=== PATIENT | male | born 1990 | race Caucasian/White ===

== ENCOUNTER 2023-04-17 15:35 | Outpatient (OUT) | payer OTHER, SELFPAY ==
--- NOTE | 2023-04-17 15:40 | XR_ITS ---
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 FINDINGS: ORBITS: Negative for a metallic foreign body. OTHER: Negative. IMPRESSION: 1. No metallic foreign body within the orbits. Electronically authenticated by: KEITH YORK Date: 04/17/2023 15:55
--- NOTE | 2023-04-17 16:00 | MR_ITS ---
[address] [address] Patient Name: MEMO MIRELES MRN: [id number] date: 1990 Sex: M Assigned Patient Location: MRI Current Patient Location: Accession/Order Number: [id number] Exam Date: 04/17/2023 16:00 Report Date: 04/18/2023 06:33 At the request of: NON-STAFF PHYSICIAN Procedure: MR lumbar spine wo con EXAM: MRI of the lumbar spine without IV gadolinium contrast. REASON FOR EXAM: Low back pain with radiculopathy to feet COMPARISON: None FINDINGS: No lumbar spine fractures, acute malalignment or acute abnormal marrow signal. No spinal canal mass, hematoma or fluid collection. Mild lumbar spine degenerative changes with preserved intervertebral disc heights. No substantial posterior disc protrusions. No substantial spinal canal stenoses. Mild bilateral L5-S1 neural foraminal stenoses. Mild left L3-L4 and L4-5 neural foraminal stenoses. Remainder unremarkable. IMPRESSION: 1. No acute lumbar spine abnormalities. 2. No moderate or high-grade spinal canal or neural foraminal stenoses. Electronically authenticated by: ROSE FAITH Date: 04/18/2023 06:33
== END 2023-04-17 15:36 | disposition home or self-care (01) ==
LOC: MRI 15:35
DX: M54.16 Radiculopathy, lumbar region (principal)
CPT/HCPCS: 70030; 72148

== ENCOUNTER 2024-02-03 14:00 | Outpatient (OUT) | payer OTHER, SELFPAY | END 2024-02-03 14:01 | disposition home or self-care (01) | LOC: PST 14:49 | PROVIDERS: Visit Provider Surgery | DX: Z01.818 Encounter for other preprocedural examination (principal); K62.89 Other specified diseases of anus and rectum; K62.5 Hemorrhage of anus and rectum; R19.5 Other fecal abnormalities; R19.4 Change in bowel habit ==

== ENCOUNTER 2024-02-11 09:54 | Day surgery (SDC) | payer OTHER, SELFPAY ==
--- NOTE | 2024-02-11 | OP_ITS ---
OPERATION DATE: 02/11/2024 PREOPERATIVE DIAGNOSIS: Change in bowel habits, abdominal pain, rectal bleeding. POSTOPERATIVE DIAGNOSIS: Prominent rectal veins. PROCEDURE: Colonoscopy to cecum with random sigmoid biopsies. SURGEON: Raffaele Byrne M.D. ANESTHESIA: Monitored anesthesia care. ESTIMATED BLOOD LOSS: Zero. INDICATIONS AND CONSENT: Patient is a 34-year-old male with a history of intermittent rectal bleeding, crampy abdominal pain, as well as alternating diarrhea and constipation. Indications, risks, benefits, alternatives of proceeding with colonoscopy were explained extensively to the patient, including the risks of bleeding, colon perforation or anesthetic complications. All of his questions were answered. Informed consent was obtained. PROCEDURE: Patient brought to the operating room, placed in the left lateral decubitus position. Monitored anesthesia care was provided. Rectal exam was performed which showed no masses or blood. The scope was inserted into the anal canal. Under direct visualization was advanced. It was advanced to the cecum where cecal markings were clearly identified. There was noted to be a good prep. Upon withdrawal of the scope, mucosal surfaces were carefully examined. There were no mass lesions or polyps. No inflammatory changes or ulcerations. No significant diverticulosis. There was noted to be some redundancy of the colon. Multiple sigmoid biopsies were obtained with cold biopsy forceps with good hemostasis. The scope was retroflexed in the anal canal. There were noted to be some prominent rectal veins, no significant hemorrhoidal disease. Scope was then withdrawn. Patient tolerated procedure well, was sent to recovery room in good condition. f/u screening colonoscopy should be in 10 years. CC: JOHN Hooper
[2024-02-11 10:17] VITALS: BP 131/76; PULSE 65; TEMP 35.9; O2SAT 100; BMI 26.6
[2024-02-11] MEDS: LACTATED RINGER'S SOLUTION 1,000 ML 50 ML IV (10:37)
[2024-02-11 13:17] VITALS: BP 82/38; PULSE 98; TEMP 36.2; O2SAT 96
[2024-02-11 13:32] VITALS: BP 100/58; PULSE 54; O2SAT 99
[2024-02-11 13:47] VITALS: BP 106/62; PULSE 56; O2SAT 97
== END 2024-02-11 13:50 | disposition home or self-care (01) ==
PROVIDERS: Visit Provider Surgery
PROC: (CPT 00812; principal; 2024-02-11 10:45)
DX: K62.89 Other specified diseases of anus and rectum (principal); K62.5 Hemorrhage of anus and rectum; R19.4 Change in bowel habit; G47.33 Obstructive sleep apnea (adult) (pediatric); N52.9 Male erectile dysfunction, unspecified; F17.290 Nicotine dependence, other tobacco product, uncomplicated; R10.31 Right lower quadrant pain; R10.32 Left lower quadrant pain; F43.12 Post-traumatic stress disorder, chronic
CPT/HCPCS: 00812; 45380; 88305; J2704

== ENCOUNTER 2024-04-05 21:51 | Emergency (ER) | payer OTHER, SELFPAY ==
--- OUTSIDE RECORDS SUMMARY | 2024-04-05 22:09 | XMS_ITS | CCD ---
Author Organization [facility] Care Team Providers Care Telephone Exchange Operator Name Role Phone Elba León Unavailable DEX SIMMONS Admitting Unavailable DEX SIMMONS Attending Unavailable DEX SIMMONS Primary Care Unavailable DR KEITH YORK Consulting Unavailable DEX SIMMONS Consulting Unavailable NONE, XXXX Primary Care Physician Unavailab Raffaele Marcos Attending Unavailable Raffaele Byrne Admitting Unavailable MD Raffaele Byrne Attending Provider Raffaele BYRNE Attending Unavailable Raffaele BYRNE Attending Unavailable Raffaele BYRNE Attending Unavailable Medications Current Medications Medication Drug Class(es) Dates Sig (Normalized) Sig (Original) Betamethasone / Clotrimazole (1 source) Azole Antifungal, Corticosteroid Start: 4 betamethasone-clotrim azole topical 1 avril, Topical, BID, Refill(s) 0 Start Date: 01/07/24 Status: Ordered celecoxib 200 mg oral capsule (2 sources) Nonsteroidal Anti-inflammatory Drug Start: 4 take 1 capsule by mouth once daily CeleBREX 200 mg Cap 200 mg = 1 cap(s), Oral, Daily, Refills(s) 0 Start Date: 01/07/24 Status: Ordered dextromethorphan hydrobromide 15 mg / guaiFENesin 400 mg / pseudoephedrine hydrochloride 60 mg oral tablet (1 source) alpha-Adrenergic Agonist, Uncompetitive O-qrwmhu-R-asparta te Receptor Antagonist, Sigma-1 Agonist Start: 3 take 4 tablets by mouth every twenty-four hours as needed Capmist DM 60-15-400 MG as needed Orally every 4-6 hours as needed, max 4 tablets in 24 hours for 5 days Sep, Active Dibucaine (1 source) Standardized Chemical Allergen Start: 4 Dibucaine 1% topical ointment 1 avril, Topical, TID, Refill(s) 0 Start Date: 01/07/24 Status: Ordered hydrocortisone acetate 10 mg/ml / pramoxine hydrochloride 10 mg/ml rectal foam (1 source) Corticosteroid Start: 4 hydrocortisone-pramox ine rectal foam 1 avril, Rectal, BID, Refill(s) 0 Start Date: 01/07/24 Status: Ordered methylPREDNISolone 4 mg oral tablet (1 source) Corticosteroid Start: 3 methylPREDNISolone 4 MG as directed Orally for 6 days Sep, Active sertraline 100 mg oral tablet (3 sources) Serotonin Reuptake Inhibitor Start: 4 take 1 tablet by mouth once daily Zoloft 100 mg Tab 100 mg = 1 tab(s), Oral, Daily, Refills(s) 0 Start Date: 01/07/24 Status: Ordered Sertraline HCl A ctive Problems Active Problems Problem Classification Problem Date Documented Da te Episodic/Chronic Abdominal pain (4 sources) Right lower quadrant pain; Translations: [Right lower quadrant pain] Onset: 01-29-2024 Episodic Anal and rectal conditions (3 sources) Anorectal disorder; Translations: [Other specified diseases of anus and rectum] Onset: 01-29-2024 Episodic Anxiety disorders (2 sources) Chronic post-traumatic stress disorder 01-07-2024 Chronic Gastrointestinal hemorrhage (4 sources) Hemorrhage of rectum and anus; Translations: [Hemorrhage of anus and rectum] Onset: 01-29-2024 Episodic Headache; including migraine (2 sources) Chronic tension-type headache 01-07-2024 Chronic Mood disorders (2 sources) Chronic recurrent major depressive disorder 01-07-2024 Chronic Other gastrointestinal disorders (4 sources) Altered bowel function; Translations: [Change in bowel habit] Onset: 01-29-2024 Episodic Other male genital disorders (2 sources) Impotence 01-07-2024 Chronic Other nervous system disorders (1 source) Chronic pain; Translations: [Other chronic pain] Onset: 01-29-2024 Chronic Other nutritional; endocrine; and metabolic disorders (2 sources) Overweight 01-29-2024 Episodic Other nutritional; endocrine; and metabolic disorders (2 sources) Overweight in adulthood with body mass index of 25 or more but less than 30 01-29-2024 Episodic Other screening for suspected conditions (not mental disorders or infectious disease) (2 sources) No current problems or disability 03-28-2014 Episodic Other upper respiratory disease (2 sources) Chronic rhinitis 01-07-2024 Chronic Other upper respiratory infections (1 source) Acute upper respiratory infection, unspecified Episodic Residual codes; unclassified (2 sources) Obstructive sleep apnea syndrome 01-07-2024 Chronic Residual codes; unclassified (1 source) Tobacco user; Translations: [Tobacco use] Onset: 01-29-2024 Episodic Residual codes; unclassified (2 sources) Nicotine-filled electronic cigarette user 01-29-2024 Episodic Substance-related disorders (2 sources) Nicotine dependence 01-07-2024 Chronic Past or Other Problems Problem Classification Problem Date Documented Da te Episodic/Chronic Immunizations and screening for infectious disease (1 source) Contact with and (suspected) exposure to other viral communicable diseases Onset: 05-21-2022 Resolved: 05-21-2022 Episodic Unclassified (1 source) Contact with and (suspected) exposure to covid-19 Z20.822 Viral infection (1 source) COVID-19 Onset: 05-21-2022 Resolved: 05-21-2022 Results Test Name Value Interpretation Reference Range Facility Ambulatory Visit Summaryon 0 02-24-2024 Ambulatory Visit Summary MEMO TRINH :1990 Visit Date:02/24/2024 Ambulatory Visit Instructions Your Care Team Attending Physician - JAYY SANTOS, Raffaele Ahumada Primary Care Physician - NONE, XXXX This Is Your Medications List celecoxib (CeleBREX 200 mg Cap) sertraline (Zoloft 100 mg Tab) Procedures Performed Colonoscopy (02/11/2024), Excision of cyst, Tonsillectomy. Medications What How Much When Instructions Unchanged celecoxib (CeleBREX 200 mg Cap) 1 Capsules By Mouth Every day Unchanged sertraline (Zoloft 100 mg Tab) 1 Tablets By Mouth Every day Allergies No Known Allergies Problems Ongoing - Any problem that you are currently receiving treatment for. BMI 28.0-28.9,adult Change in bowel habits Chronic bilateral lower abdominal pain Chronic post-traumatic stress disorder Chronic recurrent major depressive disorder Chronic rhinitis Chronic tension-type headache Erectile dysfunction Nicotine dependence Obstructive sleep apnea syndrome Overweight Rectal bleeding Rectal pain Vapes nicotine containing substance Historical - Any problem that you are no longer receiving treatment for. none Patient Survey You may receive a survey via text or e-mail asking about your office visit. Please share your experience with us by completing your survey. We appreciate your feedback and thank you for choosing us for your care. Dot Norris [facility] General Surgery Office/Clini c Noteon 02-24-2024 General Surgery Office/Clinic Note Chief Complaint colonoscopy follow up HPI Staff 13 day post operative follow up post colonoscopy with sigmoid biopsies. Reports bowel changes and rectal bleeding have resolved at this time. History of Present Illness s/p colonoscopy with random sigmoid biopsies; no evidence of inflammation; patient with tortuous colon and prominent rectal veins; denies abd pain or blood in stools. Review of Systems ROS - Provider Constitutional: no fever, no sweats, no weight loss. Eyes: no glasses, no blurred vision, no visual loss. ENMT: no dentures, no hoarseness, no swallowing difficulties, no hearing loss, no ear infection(s), no nose bleeds. Cardiovascular: normal blood pressure, no chest pain, regular heartbeat, no heart murmur. Respiratory: no shortness of breath, no cough, no asthma, no wheezing. Gastrointestinal: no nausea, no vomiting, no diarrhea, no constipation, no blood in stool, no change in bowel habits, no abdominal pain, no hepatitis. Genitourinary: no kidney stones, no urine infection, no dysuria. Musculoskeletal: no pain, no weakness. Skin: no changing moles, no rash, no skin lumps. Neurologic: no seizures, no epilepsy, no headache. Psychiatric: no emotional or psychiatric problem. Heme/Lymph: no bleeding problems, no anemia, no blood clots, no transfusions. Allergy/Immunologic: no swollen lymph nodes/glands, no IV drug abuse. Other: Additional ROS info: Except as noted in the above Review of Systems and in the History of Present Illness, all other systems have been reviewed and are negative or noncontributory. Assessment/Plan 1. Change in bowel habits (R19.4: Change in bowel habit) likely IBS, recommend high fiber diet and daily fiber supplement; call with problems/questions; screening colonoscopy at age 43 2. Rectal bleeding (K62.5: Hemorrhage of anus and rectum) likely from irritation of prominent rectal veins. Follow-up No qualifying data available Problem List/Past Medical History Ongoing BMI 28.0-28.9,adult Change in bowel habits Chronic bilateral lower abdominal pain Chronic post-traumatic stress disorder Chronic recurrent major depressive disorder Chronic rhinitis Chronic tension-type headache Erectile dysfunction Nicotine dependence Obstructive sleep apnea syndrome Overweight Rectal bleeding Rectal pain Vapes nicotine containing substance Historical none Procedure/Surgical History Colonoscopy (02/11/2024), Excision of cyst, Tonsillectomy. Medications CeleBREX 200 mg Cap, 200 mg= 1 cap(s), Oral, Daily Zoloft 100 mg Tab, 100 mg= 1 tab(s), Oral, Daily Allergies No Known Allergies Social History Alcohol Current, Beer, 3-5 times per week, 01/29/2024 Substance Abuse - Denies Substance Abuse, 01/29/2024 Tobacco Former smoker, quit more than 30 days ago Tobacco Use:. Former smokeless tobacco user, quit more than 30 days ago, Current vaping or e-cigarette use Smokeless Tobacco Use:. Cigarettes, Oral, Vaping, 1 per day. Started age 16.0 Years. Stopped age 24 Years. Yes, 01/29/2024 Family History Drug addiction: Mother. Hypothyroidism: Father and Sister. Immunizations Vaccine Date Status diphtheria/pertussis, acel/tetanus adult 12/02/[address] [facility] Comment on above: Result Comment: Elec tronically Signed By: JYAY SANTOS, Raffaele Sequeira\Date and Time Signed: 02/24/24 16:20 EDT Reminderson 02-24-2024 Reminders - From: Trish Griffin LPN To: N - Clinical; Sent: 02/24/2024 16:17:37 EDT Show up: 01/11/2034 07:00:00 EDT Subject: colonoscopy recall Due Date/Time: 02/10/2034 07:00:00 EDT Reminder/Recall Patient due for screening colonoscopy 02/10/2034. Normal [facility] Pathology Noteon 02-16-2024 Pathology Note [id number] [facility] Outside Colonoscopyon 2023 Outside Colonoscopy [id number] 0TIFF Normal Jr [facility] Deon 02-11-2024 L Specimen: [id number] Received: 02/12/24 Status: SABAS Knowles Num: [id number] Spec Type: Surgical Subm Dr: Raffaele Byrne MD FACS Tissues: A Colon Biopsy (RANDOM SIGMOID BX) Procedures: HE/2, Gross/Micro L4 Age/ Patient Sex Location Account Attending Physician Memo Trinh 34/M [facility] [id number] Raffaele Byrne MD FACS SPEC NUM: [id number] RECD: 02/12/24 STATUS: SABAS KNOWLES NUM: [id number] TEE: 02/11/[address]: Raffaele Byrne MD FACS ENTERED: 02/12/[address]: Zeeshan Maciel SPEC TYPE: Surgical DEPT: PETRONA LOCKWOOD ORDERED: HE/2, Gross/Micro L4 ORDERED: HE/2, Gross/Micro L4 Pathological Diagnosis Sigmoid colon, biopsies: ? Benign colonic mucosa showing no active colitis or other diagnostic abnormalities. Gross Description Received in formalin, labeled with the patient's name, date of and random sigmoid colon biopsies are 3 beck mucosal tissue fragments ranging from 0.4 x 0.3 x 0.1 cm to 0.2 x 0.2 x 0.1 cm, entirely submitted in A1. Clinical history: Normal CPT Codes 23424 ---- ---- Specimen: [id number] Received: 02/12/24 Status: SABAS Knowles Num: [id number] Spec Type: Surgical Subm Dr: Raffaele Byrne MD FACS Tissues: A Colon Biopsy (RANDOM SIGMOID BX) Procedures: HE/2, Gross/Micro L4 ---- Patient: Memo Trinh [id number] (Continued) ---- Signed (signature on file) Len Rod MD 02/13/24 1451 Normal [facility] Consent for Procedure/Surger yon 01-30-2024 Consent for Procedure/Surgery [id number] [facility] Ambulatory Visit Summaryon 0 01-29-2024 Ambulatory Visit Summary MEMO TRINH :1990 Visit Date:01/29/2024 Ambulatory Visit Instructions Your Diagnosis Change in bowel habits Rectal bleeding Chronic bilateral lower abdominal pain Rectal pain Vapes nicotine containing substance Left lower quadrant pain Other chronic pain Your Care Team Attending Physician - JAYY SANTOS, Raffaele Ahumada Primary Care Physician - NONE, XXXX This Is Your Medications List Contact prescribing physician if questions or concerns betamethasone-clotrima zole topical celecoxib (CeleBREX 200 mg Cap) dibucaine topical (Dibucaine 1% topical ointment) hydrocortisone-pramoxi ne topical (hydrocortisone-pramox ine rectal foam) sertraline (Zoloft 100 mg Tab) Procedures Performed Excision of cyst, Tonsillectomy. Discharge Vitals Heart Rate (Peripheral) 58 Respiratory Rate 16 Blood Pressure 114/74 Height 190 cm Height 75 in Weight 101.3 kg Weight 222.86 lb BMI 28.06 Medications What How Much When Instructions Unchanged betamethasone-clotrima zole topical 1 Application Topical 2 times a day Contact prescribing physician if questions or concerns Unchanged celecoxib (CeleBREX 200 mg Cap) 1 Capsules By Mouth Every day Contact prescribing physician if questions or concerns Unchanged dibucaine topical (Dibucaine 1% topical ointment) 1 Application Topical 3 times a day Contact prescribing physician if questions or concerns Unchanged hydrocortisone-pramoxi ne topical (hydrocortisone-pramox ine rectal foam) 1 Application By rectum 2 times a day Contact prescribing physician if questions or concerns Unchanged sertraline (Zoloft 100 mg Tab) 1 Tablets By Mouth Every day Contact prescribing physician if questions or concerns Allergies No Known Allergies Problems Ongoing - Any problem that you are currently receiving treatment for. BMI 28.0-28.9,adult Change in bowel habits Chronic bilateral lower abdominal pain Chronic post-traumatic stress disorder Chronic recurrent major depressive disorder Chronic rhinitis Chronic tension-type headache Erectile dysfunction Nicotine dependence Obstructive sleep apnea syndrome Overweight Rectal bleeding Rectal pain Vapes nicotine containing substance Historical - Any problem that you are no longer receiving treatment for. none Patient Survey You may receive a survey via text or e-mail asking about your office visit. Please share your experience with us by completing your survey. We appreciate your feedback and thank you for choosing us for your care. [facility] Pre-Certification Formon Pre-Certification Form [id number] 0TIFF [facility] Physician Referralon 024 Physician Referral [id number] 0TIFF [facility] MRI CSPINE WO CONon 02-22-20 23 MRI CSPINE WO CON EXAMINATION: MRI CSPINE WO CON HISTORY: Pain in right arm COMPARISON: No relevant comparison available. TECHNIQUE: A variety of imaging planes and parameters were utilized for visualization of suspected pathology. FINDINGS: CRANIOCERVICAL AREA: The cerebellar tonsils extend 1 mm below the foramen magnum. PARASPINAL AREA: Normal with no visible mass. BONES: No fracture, pars defect, or osseous lesion. CORD: Normal caliber, contour, and signal intensity. CERVICAL DISC LEVELS: C2-C3: No significant disc/facet abnormality, spinal stenosis, or foraminal stenosis. C3-C4: No significant disc/facet abnormality, spinal stenosis, or foraminal stenosis. C4-C5: No significant disc/facet abnormality, spinal stenosis, or foraminal stenosis. C5-C6: Early degenerative disc disease is present without focal protrusion or neural impingement. C6-C7: Early degenerative disc disease is present without focal protrusion or neural impingement. C7-T1:. No significant disc/facet abnormality, spinal stenosis, or foraminal stenosis. IMPRESSION: 1. Mild cerebellar tonsillar ectopia. 2. No significant central canal or foraminal stenosis to account for patient's symptoms. Electronically authenticated by: KEITH YORK Date: 2023-02-21 08:51 Normal [facility] MRI SHOULDER RT WO CONon MRI SHOULDER RT WO CON EXAMINATION: MRI SHOULDER RT WO CON HISTORY: Pain in right arm ; chronic right shoulder pain and arm weakness COMPARISON: No relevant comparison available. TECHNIQUE: A variety of imaging planes and parameters were utilized for visualization of suspected pathology. Imaging was performed without contrast. FINDINGS: ROTATOR CUFF REGION CUFF TENDONS: Mild increased signal intensity in the supraspinatus tendon indicates tendon degeneration and/or tendinitis. No tonio tear is seen. CUFF MUSCLES: Normal appearing muscles. DELTOID: Normal. No significant atrophy or tear. LONG BICEPS TENDON: Normal. No abnormal signal, attrition, or tear. LABRUM/BICEPS ANCHOR SUPERIOR: No visible labral tear or biceps anchor pathology. ANTERIOR/INFERIOR: No visible tear or attrition. POSTERIOR: No posterior labrum abnormality. CAPSULE No visible capsular laxity or thickening. AC JOINT REGION AC JOINT: Normal acromioclavicular joint. AC LIGAMENTS: Normal acromioclavicular ligament. CC LIGAMENTS: Normal coracoclavicular ligaments. ACROMION: Normal horizontal (Type I) configuration. SUBACROMIAL BURSA: Normal. No significant effusion. HYALINE CARTILAGE: Normal. No visible cartilage narrowing or focal defect. OTHER BONES: Normal proximal humerus, glenoid, and coracoid. OTHER OBSERVATIONS: Negative. No other significant findings or glenohumeral effusion. IMPRESSION: 1. Mild strain of the superior rotator cuff. Electronically authenticated by: KEITH YORK Date: 2023-02-21 08:32 Normal [facility] XR FOREIGN BODY EYEon 2022 XR FOREIGN BODY EYE EXAMINATION: XR FOREIGN BODY EYE HISTORY: Foreign body in eye COMPARISON: No relevant comparison available. FINDINGS: ORBITS: Negative for a metallic foreign body. OTHER: Negative. IMPRESSION: 1. No metallic foreign body within the orbits. Electronically authenticated by: KEITH YORK Date: 2023-02-21 06:54 Normal [facility] SARS-CoV-2 (COVID-19) RNA NA A+probe Ql (Resp)on 05-21-2022 SARS-CoV-2 (COVID-19) RNA LADAN+probe Ql (Unsp spec) Positive [facility] Other Vital Signs Date Time Vital Sign Value Performing Clinician Facility 01-29-2024 14:06-0400 Blood Pressure Location Bikanta [facility] 01-29-2024 14:06-0400 Diastolic blood pressure 74 mm[Hg] Luxim [facility] 01-29-2024 14:06-0400 Heart rate 58 /min Lux[facility] 01-29-2024 14:06-0400 Respiratory rate 16 /min [facility] 01-29-2024 14:06-0400 Systolic blood pressure 114 mm[Hg] [facility] 09-12-2023 10:00-0500 Body height 190.5 cm Elba León Other [facility] 09-12-2023 10:00-0500 Body mass index (BMI) [Ratio] 28.69 kg/m2 Elba León Other [facility] 09-12-2023 10:00-0500 Body temperature 98 [degF] Elba León Other [facility] 09-12-2023 10:00-0500 Body weight 104.15 kg Elba León Other [facility] 09-12-2023 10:00-0500 Diastolic blood pressure 73 mm[Hg] Elba León Other [facility] 09-12-2023 10:00-0500 Respiratory rate 18 /min Elba León Other [facility] 09-12-2023 10:00-0500 SaO2% (BldA) [Mass fraction] 96 % Elba León [facility] 09-12-2023 10:00-0500 Systolic blood pressure 129 mm[Hg] Elba León Other [facility] 05-21-2022 10:35-0400 Body height 190.5 cm Elba León Other [facility] 05-21-2022 10:35-0400 Body mass index (BMI) [Ratio] 27.25 kg/m2 Elba León Other [facility] 05-21-2022 10:35-0400 Body temperature 98.3 [degF] Elba León Other [facility] 05-21-2022 10:35-0400 Body weight 98.88 kg Elba León Other [facility] 05-21-2022 10:35-0400 Respiratory rate 18 /min Elba León Other [facility] Other 05-21-2022 10:35-0400 SaO2% (BldA) [Mass fraction] 97 % Elba León Other [facility] Other Encounters Encounter Date Encounter Type Care Provider Facility Start: 02-24-2024 End: 02-25-2024 ambulatory Raffaele R NILL Facility: [facility] Start: 02-24-2024 End: 02-24-2024 Patient encounter procedure Raffaele R NILL [facility] Start: 02-11-2024 End: 02-11-2024 ambulatory Raffaele R Nill Facility:[facility] Start: 02-11-2024 End: 02-12-[address] R N[address] [facility] Work Phone: Start: 02-11-2024 End: 02-11-2024 Departed Referred MD Raffaele Byrne Work Phone: [facility] Start: 01-29-2024 End: 01-30-2024 ambulatory Raffaele R NILL Facility: [facility] Start: 01-29-2024 End: 01-29-2024 Patient encounter procedure Raffaele R NILL [facility] Start: 01-26-2024 ambulatory Raffaele NILL Facility:[facility] Start: 01-06-2024 ambulatory Raffaele NILL Facility:[facility] Start: 09-12-2023 End: 12-01-2023 ambulatory Elba León [facility] Start: 09-12-2023 Office outpatient vi sit 25 minutes Elba León [facility] Start: 02-21-2023 End: 02-22-2023 ambulatory DEX SIMMONS Facility:[facility] Start: 05-21-2022 End: 05-21-2022 ambulatory Elba León Other [facility] Start: 05-21-2022 Office outpatient ne w 30 minutes Elba León [facility] [address] Procedures Date Procedure Procedure Detail Performing Clinician Start: 02-11-2024 Colonoscopy Raffaele MUNIZ LL Excision of cyst Raffaele Daniel Comment on above: scalp x 2 Tonsillectomy Raffaele BYRNE Immunizations Immunization Date Immunization Notes Care Provider William deluca 12-02-2011 tetanus toxoid, redu glynn diphtheria toxoid, and acellular pertussis vaccine, adsorbed Raffaele BYRNE [facility] Payers Date Payer Category Payer Self-pay 2024 Unknown [id number] 1990 Unknown [id number] 2.16.84 [id number] 1990 Unknown [id number] [id number] 1990 Unknown [id number] [id number] [id number] 1990 Unknown [id number] [id number] 1961 Private Health Insurance [facility] [id number] Social History Date Type Detail Facility Sex Assigned At [facility] Start: 01-29-2024 Tobacco smoking status Ex-smoker (fi nding) [facility] Tobacco smoking status Former sm okeless tobacco user, quit more than 30 days ago [facility] Start: 1990 Sex Assigned At Male F [facility] Functional Status Date Assessment Result Facility 01-29-2024 Functional Status N/A [facility] Clinical Note 01-29-2024 Note Date & Type Note Facility 01-29-2024 Note Chief Complaint consultation for rectal pain, bleeding and loose stools HPI Staff 34 year old male presents on consultation from [place] for rectal pain and bleeding. Reports 3 year history of rectal pain, rectal bleeding and intermittent loose stools. Reports symptoms have worsened over the past year. Describes crampy abdominal pain prior to loose stools. Reports he can experience up to 5 bowel movements per day. Reports bright red blood with wiping and occasional blood in toilet water. Denies blood clots or mucus. Describes external rectal pain but denies noting external bulge. He has been apply external cream to anus without improvement. Denies nausea, vomiting or weight loss. Never had colonoscopy in the past. No known family history of colon cancer or IBD. History of Present Illness 34 yo male with h/o PTSD, chronic headaches, depression, referred for bowel changes, rectal bleeding; patient reports over 3 year h/o crampy bilateral mid abd pain, loose stools, rectal bleeding; alternating with small hard stools; no food triggers, no medication changes, no wt loss; no N/V; no hemorrhoid swelling or prolapse; using hemorrhoid creams without improvement; no abd operations or previous endoscopy; takes Aleve prn, no asa; vapes nicotine-containing products; no fmhx of GI malignancy or IBD. no imaging. Review of Systems PHQ Score Initial Depression Screen Score: 0 SCORE ROS - Provider Constitutional: no fever, no sweats, no weight loss. Eyes: no glasses, no blurred vision, no visual loss. ENMT: no dentures, no hoarseness, no swallowing difficulties, no hearing loss, no ear infection(s), no nose bleeds. Cardiovascular: normal blood pressure, no chest pain, regular heartbeat, no heart murmur. Respiratory: no shortness of breath, no cough, no asthma, no wheezing. Gastrointestinal: no nausea, no vomiting, no diarrhea, no constipation, no blood in stool, no change in bowel habits, no abdominal pain, no hepatitis. Genitourinary: no kidney stones, no urine infection, no dysuria. Musculoskeletal: no pain, no weakness. Skin: no changing moles, no rash, no skin lumps. Neurologic: no seizures, no epilepsy, no headache. Psychiatric: no emotional or psychiatric problem. Heme/Lymph: no bleeding problems, no anemia, no blood clots, no transfusions. Allergy/Immunologic: no swollen lymph nodes/glands, no IV drug abuse. Other: Additional ROS info: Except as noted in the above Review of Systems and in the History of Present Illness, all other systems have been reviewed and are negative or noncontributory. Physical Exam Vitals & Measurements HR: 58(Peripheral) RR: 16 BP: 114/74 HT: 75 in HT: 190 cm WT: 101.3 kg WT: 222.86 lb BMI: 28.06 HEENT: normal conjunctiva, sclera clear, no scleral icterus, EOM intact, PERRLA, oral mucosa moist without lesions. Neck: trachea midline, no mass, symmetric, no thyromegaly or nodules, no adenopathy Respiratory: lungs CTA, respirations non labored. Cardiovascular: regular rate and rhythm, no murmur, no pedal edema or varicosities. Gastrointestinal: soft, non distended, no tenderness, no masses, no palpable hernias, diastasis recti no, no hepatosplenomegaly; normal bs Lymphatic: no cervical adenopathy, nosupraclavicular adenopathy. Musculoskeletal: normal gait, digits and nails without infection, nodes, cyanosis, clubbing. Skin: no rashes, no lesions, no ulcers, no subcutaneous nodules, induration. Psychiatric/Neuro: oriented to time, place, person, judgement normal, affect appropriate for age, insight intact, no focal deficits. Tests: review of old records completed , Discussed surgical options, risks, and possible complications with patient. Assessment/Plan 1. Change in bowel habits (R19.4: Change in bowel habit) plan colonoscopy under anesthesia for further evaluation, informed consent obtained. 2. Rectal bleeding (K62.5: Hemorrhage of anus and rectum) see # 1 3. Chronic bilateral lower abdominal pain (R10.31: Right lower quadrant pain) see # 1 4. Rectal pain (K62.89: Other specified diseases of anus and rectum) see # 1 5. Vapes nicotine containing substance (Z72.0: Tobacco use) We strongly recommend to quit tobacco use. Cigarette smoking harms nearly every organ of the body, causes many diseases, and reduces the health of smokers in general. Quitting smoking lowers your risk for smoking-related diseases and can add years to your life. We encourage you to visit www.smokefree.gov access to helpful resources including free telephone support. If you decide on prescription treatment to help you quit, your family doctor would be happy to provide these. Left lower quadrant pain (R10.32: Left lower quadrant pain) see # 1 Other chronic pain (G89.29: Other chronic pain) Follow-up No qualifying data available Problem List/Past Medical History Ongoing BMI 28.0-28.9,adult Change in bowel habits Chronic bilateral lower abdominal pain Chronic post-traumatic stress disorder Chronic recurrent (more content not included)... [facility] Comment on above: Result Comment: Elec tronically Signed By: JAYY SANTOS, Raffaele Ponce.[email or web address]\Date and Time Signed: 01/29/24 14:54 EDT Evaluation note 09-12-2023 Note Date & Type Note Facility 09-12-2023 Evaluation note Encounter Date Diagnosis Assessment Notes Sep, Contact with and (suspected) exposure to covid-19 (ICD-10 - Z20.822) Sep, Viral URI with cough (ICD-10 - J06.9) Advised patient that rapid COVID test was negative today. Advised patient that will treat as viral URI. Supportive care as directed, increase fluids and rest, Tylenol as directed, rx Capmist and steroid, cool mist humidifier, throat lozenges. Discussed infection control practices such as good hand washing and mask wearing. Patient to follow up with PCP if symptoms persist or worsen despite treatment. Immediate eval for SOB, difficulty breathing, chest pain, fevers that do not break with antipyretic or any other concerning symptoms as reviewed on patient education handout. Patient verbalizes understanding and is agreeable to treatment plan. Patient left in stable condition [facility] Other Evaluation note 05-21-2022 Note Date & Type Note Facility 05-21-2022 Evaluation note Encounter Date Diagnosis Assessment Notes May, Contact with and (suspected) exposure to other viral communicable diseases (ICD-10 - Z20.828) May, COVID-19 (ICD-10 - U07.1) COVID PCR test performed in office today. Advised patient that test was positive. Instructed patient to isolate per CDC guidelines for 5 days from symptom onset, mask 5 days following. May return to work/activities outside home after isolation period as long as symptoms are improving and has been afebrile for 24 hours without use of antipyretic. Advised patient that treatment of COVID is with viral supportive care, OTC cold medications as directed, Tylenol/Motrin as needed for body aches/fever. Increase fluids and rest. Encouraged use of cool mist humidifier. Follow-up with PCP to advise of positive result and further management. Patient requested Ivermectin for treatment, advised that this is not a therapy that I prescribe. Immediate eval for SOB, difficulty, chest pain, fevers that do not break with antipyretic or any other concerning symptoms as reviewed on patient education handout. Patient verbalizes understanding and is agreeable to treatment plan. Patient left in stable condition [facility] Other Evaluation + Plan note Note Date & Type Note Facility Evaluation + Plan note No data available for this section [facility] Evaluation note Note Date & Type Note Facility [facility]: History general Narrative - Reported Note Date & Type Note Facility History general Narrative - Reported Type Medical History anxiety [facility] Other Hospital Discharge instructions Note Date & Type Note Facility Hospital Discharge instructions No data available for this section [facility] Progress note Note Date & Type Note Facility Progress note No data available for this section [facility] Summary Purpose Family History No Family History Records Found No data available for this section No Family History Records Found No data available for this section No Family History Records Found Advance Directives No Advanced Directives Records FoundNo Advanced Directives Records FoundNo Advanced Directives Records Found Additional Source Comments REASON FOR VISIT (unrecogniz ed section and content) POSITIVE HOME COVID TEST,YANIRA GRANT//COUGH (unrecognized sect ion and content) No Status Records FoundNo Status Records FoundNo Status Records Found INFORMATION SOURCE (unrecogn ized section and content) DATE CREATED AUTHOR 02/22/2023 [facility] DATE CREATED AUTHOR AUTHOR'S ORGANIZ ATION 02/14/2024 [facility] DATE CREATED AUTHOR AUTHOR'S ORGANIZ ATION 02/26/2024 [facility] Care Teams (unrecognized sec tion and content) Team Status: Inactive Member Role Status Dates Raffaele Byrne MD FACS Attending Provider Active Start: February 11, 2024 End: February 11, 2024 Goals (unrecognized section and content) Goals may be documented in a n alternate section FOR RECORDS PERTAINING TO PATIENTS WHO ARE OR HAVE BEEN ENROLLED IN A CHEMICAL DEPENDENCY/SUBSTANCEABUSE PROGRAM, SOME INFORMATION MAY BE OMITTED. This clinical summary was aggregated from multiple sources. Caution should be exercised in using it in the provision of clinical care. This summary normalizes information from multiple sources, and as a consequence, information in this document may materially change the coding, format and clinical context of patient data. In addition, data may be omitted in some cases. CLINICAL DECISIONS SHOULD BE BASED ON THE PRIMARY CLINICAL RECORDS. [facility]. provides no warranty or guarantee of the accuracy or completeness of information in this document.
[2024-04-05 22:16] VITALS: BP 130/76; PULSE 69; TEMP 36.8; O2SAT 97; BMI 26.9
--- NOTE | 2024-04-05 23:09 | ED_ITS ---
HPI HPI - General Adult General Chief complaint: Skin/Abscess/Foreign Body Stated complaint: rash/he thinks he has shingles Time Seen by Provider: 04/05/24 22:03 Source: patient Mode of arrival: walk-in History of Present Illness HPI narrative: This 34-year-old male with a history of migraine headaches presents for evaluation of a migraine headache associated with a generalized throbbing headache which is typical of his migraine headaches that started earlier today and is associated with nausea. He had 1 episode of vomiting prior to arrival. He denies any thunderclap presentation of the headache. He has no neck pain or stiffness. He has no blurred vision slurred speech or other focal neurologic symptoms. He also has a vesicular rash on his right posterior thoracic region that wraps around to his right anterior chest consistent with shingles. He states this rash started over a week ago. He has not been seen by anybody else for the shingles rash. Related Data Home Medications ?Medication ?Instructions ?Recorded ?Confirmed sertraline 100 mg tablet 100 mg PO DAILY 02/03/24 02/11/24 Allergies Allergy/AdvReac Type Severity Reaction Status Date / Time No Known Drug Allergies Allergy Verified 04/05/24 22:20 Opioid HPI Opioid Management Most Recent Opioid Data: Last Pain Scale 10 04/05/24 22:50 Review of Systems ROS0 Status of ROS 10 or more systems reviewed and unremark able except as noted in history and below [facility] Medical History (Updated 04/05/24 @ 23:09 by Betty Bazan MD) Anxiety ?F41.9 - Anxiety disorder, unspecified (ICD-10) Electronic cigarette use ?Z78.9 - Other specified health status (ICD-10) Obstructive sleep apnea ?G47.33 - Obstructive sleep apnea (adult) (pediatric) (ICD-10) Nicotine dependence ?F17.200 - Nicotine dependence, unspecified, uncomplicated (ICD-10) Erectile dysfunction ?N52.9 - Male erectile dysfunction, unspecified (ICD-10) Headache ?R51.9 - Headache, unspecified (ICD-10) Rhinitis ?J31.0 - Chronic rhinitis (ICD-10) Depression ?F32.A - Depression, unspecified (ICD-10) PTSD (post-traumatic stress disorder) ?F43.10 - Post-traumatic stress disorder, unspecified (ICD-10) Abdominal pain ?R10.9 - Unspecified abdominal pain (ICD-10) Change in bowel habits ?R19.4 - Change in bowel habit (ICD-10) Loose stools ?R19.5 - Other fecal abnormalities (ICD-10) PRB (rectal bleeding) ?K62.5 - Hemorrhage of anus and rectum (ICD-10) Rectal pain ?K62.89 - Other specified diseases of anus and rectum (ICD-10) Surgical History (Updated 02/11/24 @ 10:12 by Mela Sandoval) Hx of tonsillectomy ?Z90.89 - Acquired absence of other organs (ICD-10) History of excision of lesion ?Z98.890 - Other specified postprocedural states (ICD-10) ?Z87.2 - Personal history of diseases of the skin and subcutaneous tissue (ICD-10) Family History (Updated 02/11/24 @ 10:15 by Mela Sandoval) Other Family history of COPD (chronic obstructive pulmonary disease) Family history of lung cancer Social History (Updated 02/03/24 @ 14:04 by Mary Blood NP) Within the past year, how often did you have a drink containing alcohol: 2-3 times a week Smoking status: Former smoker Do you use any of these nicotine containing products: e-cigarettes Non-prescribed substance use: denies use Previous occupational history: Deputy Controller Highest level of school completed/degree received: high school graduate Exam Narrative Exam Narrative: Vital signs and Nursing Notes reviewed: Patient is afebrile with a normal pulse, normal blood pressure, he is not hypoxic with pulse ox of 97% on room air General: Awake, alert, oriented, uncomfortable appearing male holding his T-shirt over his face due to photophobia and a migraine headache, no respiratory distress HEENT: Normocephalic atraumatic, mucous membranes are moist and pink, eyes are clear, normal conjunctiva, vision is grossly intact, posterior pharynx is normal in appearance. Neck: Supple, no meningeal signs, no anterior or posterior cervical lymphadenop athy Chest: Lungs are clear to auscultation with good air entry, there is no wheezing rhonchi or rales appreciated no accessory muscle use, patient is speaking in complete sentences-no chest wall tenderness to palpation CVS: Regular rate and rhythm S1-S2, no murmurs rubs or gallops, pulses are brisk and equal bilaterally ABD: Soft, nondistended, nontender, no rebound guarding or rigidity, bowel so unds are normal, no pulsatile masses appreciated Extremities: Moving all extremities, no lower extremity tenderness or swelling noted, negative Homans' sign, pulses are brisk and equal bilaterally Skin: There is a vesicular rash consistent with herpes zoster on the right posterior thoracic region that wraps around to the right anterior chest and stops at the midline. There is no sign of active infection. Neuro: No focal deficits, photophobia, otherwise no focal deficits Constitutional Vital Signs, click to edit/add: Last Vital Signs Temp 98.2 F 04/05/24 22:16 Pulse 69 04/05/24 22:16 Resp 18 04/05/24 22:16 BP 130/76 04/05/24 22:16 Pulse Ox 97 04/05/24 22:16 O2 Del Method Room Air 04/05/24 22:16 Course Vital Signs Vital signs: Vital Signs Temperature 98.2 F 04/05/24 22:16 Pulse Rate 69 04/05/24 22:16 Respiratory Rate 18 04/05/24 22:16 Blood Pressure 130/76 04/05/24 22:16 Pulse Oximetry 97 04/05/24 22:16 Oxygen Delivery Method Room Air 04/05/24 22:16 Temperature 98.2 F 04/05/24 22:16 Pulse Rate 69 04/05/24 22:16 Respiratory Rate 18 04/05/24 22:16 Blood Pressure 130/76 04/05/24 22:16 Pulse Oximetry 97 04/05/24 22:16 Oxygen Delivery Method Room Air 04/05/24 22:16 Medical Decision Making MDM Narrative Medical decision making narrative: This 34-year-old male with a history of migraine headaches presents for evaluation of a migraine headache and shingles on the right side of his chest and back. The shingles rash has been present for greater than 1 week. The migraine headache started earlier today. The migraine headache is typical of the patient's migraines with nausea and photophobia. He denies any thunderclap presentation of the headache. He has no neck pain or stiffness. The shingles rash does not appear to be infected but appears to be painful, vesicular and tender. He was medicated emergency department with a dose of Toradol and an oral Percocet as well as Zofran. On reevaluation he is looking better and feeling more comfortable with the headache. He was medicated with a dose of Valtrex in the emergency department. I explained to him that this may or may not work as he has had the shingles rash for greater than 1 week. He will be given a prescription for 7-day course anyway as well as a prescription for Percocet to use over the course of the next several days. 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 Discharge Plan Discharge Stand Alone Forms: Portal Instructions Chief Complaint: Skin/Abscess/Foreign Body Clinical Impression: Herpes zoster, Migraine Patient Disposition: Home, Self-Care Time of Disposition Decision: 23:51 Condition: Good Prescriptions / Home Meds: No Action sertraline 100 mg tablet 100 mg PO DAILY Print Language: Montenegrin Instructions: Shingles (ED), Migraine Headache (ED) Referrals: DEX SIMMONS [Primary Care Provider] - 1 week
[2024-04-05] MEDS: VALACYCLOVIR HCL 500 MG TABLET PO (23:19)
[2024-04-05] MEDS: OXYCODONE HCL/ACETAMINOPHEN 5MG/325MG 1 TAB PO (23:20)
[2024-04-05] MEDS: OXYCODONE HCL/ACETAMINOPHEN 5MG/325MG 2 TAB PO (23:20)
[2024-04-05] MEDS: PROMETHAZINE HCL 25 MG/ML VIAL 12.5 MG IM (23:20)
[2024-04-05] MEDS: KETOROLAC TROMETHAMINE 60 MG/2 ML VIAL IM (23:21)
--- NOTE | 2024-04-05 23:45 | PC.NURSE ---
Patient states he started to get pain in his chest and back last friday, a couple of days later shingles like rash and blisters started to appear from midchest around right flank and across back. red raised blisters, closed. states today he started to get a migraine headache.
[2024-04-06 00:15] VITALS: BP 124/71; PULSE 63; O2SAT 97
== END 2024-04-06 00:20 | disposition home or self-care (01) ==
PROVIDERS: Emergency Provider Emergency Medicine
DX: G43.909 Migraine, unspecified, not intractable, without status migrainosus (principal); B02.9 Zoster without complications; Z87.891 Personal history of nicotine dependence
CPT/HCPCS: 96372; 99284; J1885; J2250

== ENCOUNTER 2025-07-08 06:53 | Outpatient (OUT) | payer OTHER, SELFPAY ==
--- OUTSIDE RECORDS SUMMARY | 2025-07-01 04:20 | XMS_ITS | Continuity of Care Document ---
Author Organization [facility] Address [address] [place] [address] Phone Care Team Providers Care Vice President Education Name Role Phone Abigail Guadalupe APRN Primary Care Provider Tyesha Skinner MD Attending Provider [phone] Care Teams Patient Care Team Team Status: Active Member Role Status Dates Abigail Guadalupe APRN MANAGER [employer]-C Primary Care Provider Activ e Visit Care Team Team Status: Inactive Member Role Status Dates Abigail Guadalupe APRN MANAGER [employer]-C Primary Care Provider Activ e Start: May 10, 2025 End: May 10, 2025 Tyesha Skinner MD Attending Provider Active Start: May 10, 2025 End: May 10, 2025 Patient Care Team Team Status: Inactive Member Role Status Dates Abigail Guadalupe APRN MANAGER [employer]COM[employer]-C Primary Care Provider Activ e Start: July 01, 2025 End: July 01, 2025 Tyesha Skinner MD Attending Provider Active Start: July 01, 2025 End: July 01, 2025 Chief Complaint and Reason for Visit Chief Complaint Admit Date [facility] REF[facility] CTS WITH EMG May 102024 3:22pm 4-7 WEEKS July 01, 2025 7:58am Reason for Visit Admit Date Bilateral carpal tunnel syndrome May 102024 3:22pm Bilateral carpal tunnel syndrome Septemb er 2024 7:58am Allergies, Adverse Reactions, Alerts Allergen Type Severity Reaction Last Updated Verified Status No Known Allergies Allergy Unknown Septem rafat 2024 8:03am Yes Active Social History Smoking Status Unknown if ever smoked Observation Status Observation Response Date of Response Legal Sex Male (finding) Sex Assigned At Male January Problems Active Problems Medical Problem Onset Date Status Bilateral carpal tunnel syndrome Unknown Active Medications Medication Status Dose Units Route Directions Qty Days St art Date Stop Date End Date Instructions Adherence Hortense (No Known Home Meds) Active May 10, 2025 12:00a m Advance Directives Advance Directive Response Recorded Date/ Time Advance Directives No January 27 12:06pm Insurance Providers Guarantor Christiano Shanthi Gayathri Address [address] [place] [id number] Contact Info. Home Phone: Payer Policy Id Subscriber's Name Subscriber Id Effectiv e Date Expiration Date VACCN [id number] Christiano Maki Gayathri [id number] Encounters Encounter Location(s) Arrival/Admit Date Discharge/Depart Date Provider(s) Departed Physician/Prov ider Office Visit -[facility] May 10, 2025 3:22pm May 10, 2025 4:03pm Tyesha Skinner MD Departed Physician/Prov ider Office Visit -[facility] July 01, 2025 7:58am July 01, 2025 8:19am Tyesha Skinner MD Recent Diagnosis Onset Date Admit Date Bilateral carpal tunnel syndrome Unknown May 10, 2025 3:22pm Bilateral carpal tunnel syndrome Unknown July 01, 2025 7:58am Assessments Diagnosis Onset Date Resolution Status Admit Date Bilateral carpal tunnel syndrome acute May 10, 2025 3:22pm Bilateral carpal tunnel syndrome acute July 01, 2025 7:58am Plan of Treatment Author [facility] Authored July 01, 2025 8:18am Extensive discussion about c urrent condition and treatment options available. Patient is progressing well from the previous injections. Activity as tolerated. Call with questions/concerns. Follow up as needed. 35-year-old man with bilateral carpal tunnel syndrome - Discussion held with patient regarding diagnosis and treatment options. At this time, we've discussed nonoperative versus operative treatment options. - Regarding nonoperative treatment options, this would include an initial trial of cortisone injection, as well as night splinting. In general, cortisone injections are considered diagnostic, therapeutic, and prognostic. A positive response with reduction in symptoms following a cortisone injection, confirms the diagnosis, as well as provides therapeutic treatment with lessening of painful symptoms and temporary decreased compression across the median nerve. However, these results may be temporary, and further treatments either with repeat cortisone injection or surgical treatment may become necessary. In addition, a cortisone injection as prognostic in that if there is a positive response with reduction of symptoms following a cortisone injection, there will likely be improvement following surgical treatment. - Operative treatment would consist of carpal tunnel release - Patient was counseled that the nerve may recover regenerate 1 mm per day or 1 inch per month along the sensory fibers. Regarding motor fibers, we do not know at what point we are intervening in the release of the nerve compression. If there has been permanent injury to the nerve, the motor nerve may not be capable of full recovery, though at least nerve decompression would prevent progression or worsening with further loss of motor fibers. In the recovery of motor strength or function is seen as a bonus not as a guarantee - EMG-NCS has revealed normal findings. Consequently, based on the EMG-NCS I would recommend trial of cortisone injection given clinical symptoms - At this time, the patient has elected for trial of cortisone injection - Night splinting to the bilateral carpal tunnel in the interim - Follow-up 4-6 weeks for reevaluation INJECTION ADMINISTERED: * Patient was given an injection of the bilateral carpal tunnel at this visit, with: 0.5 cc Kenalog + 0.5 cc 1% Lidocaine plain * This is the patient's first injection * Patient was counseled that there may be some swelling, inflammation, mild pain in the area of injection for the first few days following treatment, which may be controlled with anti-inflammatory pain medication as needed. Patient was counseled that it may take time to note full resolution of pain and symptoms following the injection, and occasionally a series of injections is necessary for full or lasting resolution of pain and symptoms. Patient was counseled that some individuals may experience skin hypopigmentation changes or fat atrophy in the area of steroid application following injection. Author [facility] Authored May 19, 2025 10: 22pm EMG reviewed in detail with the patient. Extensive discussion about current condition and treatment options available. We discussed that the patient may have an overlapping of the cervical spine, elbow compression, and carpal tunnel. We will provide the patient with bilateral carpal tunnel injections to help with the pins/needles. Risks and benefits of the procedure fully explained to the patient and they voiced understanding. Patient was prepped and tolerated the injection well. We also suggested that the patient should use a towel to reduce compression of the elbows. Call with questions/concerns. Follow up in 4-6 weeks. 35-year-old man with bilateral carpal tunnel syndrome - Discussion held with patient regarding diagnosis and treatment options. At this time, we've discussed nonoperative versus operative treatment options. - Regarding nonoperative treatment options, this would include an initial trial of cortisone injection, as well as night splinting. In general, cortisone injections are considered diagnostic, therapeutic, and prognostic. A positive response with reduction in symptoms following a cortisone injection, confirms the diagnosis, as well as provides therapeutic treatment with lessening of painful symptoms and temporary decreased compression across the median nerve. However, these results may be temporary, and further treatments either with repeat cortisone injection or surgical treatment may become necessary. In addition, a cortisone injection as prognostic in that if there is a positive response with reduction of symptoms following a cortisone injection, there will likely be improvement following surgical treatment. - Operative treatment would consist of carpal tunnel release - Patient was counseled that the nerve may recover regenerate 1 mm per day or 1 inch per month along the sensory fibers. Regarding motor fibers, we do not know at what point we are intervening in the release of the nerve compression. If there has been permanent injury to the nerve, the motor nerve may not be capable of full recovery, though at least nerve decompression would prevent progression or worsening with further loss of motor fibers. In the recovery of motor strength or function is seen as a bonus not as a guarantee - EMG-NCS has revealed normal findings. Consequently, based on the EMG-NCS I would recommend trial of cortisone injection given clinical symptoms - At this time, the patient has elected for trial of cortisone injection - Night splinting to the bilateral carpal tunnel in the interim - Follow-up 4-6 weeks for reevaluation INJECTION ADMINISTERED: * Patient was given an injection of the bilateral carpal tunnel at this visit, with: 0.5 cc Kenalog + 0.5 cc 1% Lidocaine plain * This is the patient's first injection * Patient was counseled that there may be some swelling, inflammation, mild pain in the area of injection for the first few days following treatment, which may be controlled with anti-inflammatory pain medication as needed. Patient was counseled that it may take time to note full resolution of pain and symptoms following the injection, and occasionally a series of injections is necessary for full or lasting resolution of pain and symptoms. Patient was counseled that some individuals may experience skin hypopigmentation changes or fat atrophy in the area of steroid application following injection. Future Tests Future scheduled test information is unavailable Pending Tests Pending diagnostic test information is unavailable Future Visits Future appointment information is unavailable Referrals to Other Providers Referral information is unavailable Future Procedures Future procedure information is unavailable Future Medications Future medication information is unavailable Patient Instructions Patient instructions are unavailable
--- OUTSIDE RECORDS SUMMARY | 2025-07-08 06:56 | XMS_ITS | Clinical Summary ---
Author Organization [facility] Address [address] [place] [address] Care Team Providers Care Oral And Maxillofacial Surgery Resident Name Role Phone Abigail Guadalupe MD Primary Care Provider [phone] Allergies No known active allergies Medications naproxen (Naprosyn) 500 MG tablet Take 500 mg by mouth in the morning and 500 mg in the evening. Take with meals. Active Social History Tobacco Use Types Packs/Day Years Used Date Smoking Tobacco: Never Tobacco Cessation:Counseling Given: Not Answered Alcohol Use Standard Drinks/Week Comments Yes 0 (1 standard drink = 0.6 oz pur e alcohol) socially Sex and Gender Information Value Date Recorded Sex Assigned at Not on file Legal Sex Male 2:23 PM EDT Gender Identity Not on file Sexual Orientation Not on file Last Filed Vital Signs Vital Sign Reading Time Taken Comments Blood Pressure - - Pulse - - Temperature 36.5 C (97.7 F) 03/20/2023 4:19 PM EDT Respiratory Rate - - Oxygen Saturation - - Inhaled Oxygen Concentration - - Weight 103 kg (228 lb) 03/20/2023 4:19 PM EDT Height 196.9 cm (6' 5.5 ) 03/20/2023 4:19 PM EDT Body Mass Index 26.69 03/20/2023 4:19 PM EDT Plan of Treatment Upcoming Encounters Date Type Department Care Team (Late st Contact Info) Description 07/21/2025 9:00 AM EDT Clinical Support [facility] [address] [facility] [place] [address] Ade Francois, [facility] [address] [facility] [place] [address] Insurance Care Teams Oral And Maxillofacial Surgery Resident Relationship Specialty Start Date End Date Abigail Guadalupe MD [address] [place] [id number] PCP - General Behavioral Health 12/14/24
--- OUTSIDE RECORDS SUMMARY | 2025-07-08 06:58 | XMS_ITS | CCD ---
Author Organization [facility] Care Team Providers Care Flatbed Owner Operator Name Role Phone Elba León Unavailable DEX SIMMONS Admitting Unavailable DEX SIMMONS Attending Unavailable DEX SIMMONS Primary Care Unavailable DR KEITH YORK Consulting Unavailable DEX SIMMONS Consulting Unavailable NONE, XXXX Primary Care Physician Unavailab Raffaele Marcos Attending Unavailable Raffaele Byrne Admitting Unavailable MD Raffaele Byrne Attending Provider Raffaele BYRNE Attending Unavailable Raffaele BYRNE Attending Unavailable Raffaele BYRNE Attending Unavailable Soco YEE Attending Unavailable CARLYLE HAHN Attending Unavailable DEX SIMMONS Referring Unavailable Dex Simmons APRN Primary Care Provider Tyesha Skinner MD Attending Provider Medications Current Medications Medication Drug Class(es) Dates [...] oral tablet (1 source) alpha-Adrenergic Agonist, Uncompetitive U-dkzaad-I-asparta te Receptor Antagonist, Sigma-1 Agonist Start: 3 [...] [Other chronic pain] Onset: 01-29-2024 Chronic Other nervous system disorders (5 sources) Bilateral carpal tunnel syndrome; Translations: [Carpal tunnel syndrome, bilateral upper limbs] 05-10-2025 Chronic Other nutritional; endocrine; and metabolic disorders [...] you for choosing us for your care. Normal [facility] General Surgery Office/Clini c Noteon 02-24-2024 General [...] Status diphtheria/pertussis, acel/tetanus adult 12/02/2011 Given Normal [facility] Comment on above: Result Comment: Elec trohenryally Signed By: JAYY SANTOS, Raffaele Sequeira\Date and Time Signed: 02/24/24 16:20 EDT Reminderson 02-24-2024 Reminders - From: Trish Griffin LPN To: N - Clinical; Sent: 02/24/2024 16:17:37 EDT Show up: 01/11/2034 07:00:00 EDT Subject: colonoscopy recall Due Date/Time: 02/10/2034 07:00:00 EDT Reminder/Recall Patient due for screening colonoscopy 02/10/2034. Normal [facility] Pathology Noteon 02-16-2024 Pathology Note [id number]#1.0 0TIFF Normal [facility] Outside Colonoscopyon 2023 Outside Colonoscopy [id number]#1.0 0TIFF Normal [facility] Deon 02-11-2024 L Specimen: [id number] Received: 02/12/24 Status: SABAS Knowles Num: [id number] Spec Type: Surgical Subm Dr: Raffaele Byrne MD FACS Tissues: A Colon Biopsy (RANDOM SIGMOID BX) Procedures: HE/2, Gross/Micro L4 Age/ Patient Sex Location Account Attending Physician Memo Trinh 34/M LABELL [id number] Raffaele Byrne MD FACS SPEC NUM: [id number] RECD: 02/12/24 STATUS: SABAS KNOWLES NUM: [id number] TEE: 02/11/[address] [facility] [address]: Raffaele Byrne MD FACS ENTERED: 02/12/[address] [facility] [address]: Raheem,Lab SPEC TYPE: Surgical DEPT: PETRONA LOCKWOOD ORDERED: [...] in A1. Clinical history: Normal CPT Codes 28043 ---- ---- Specimen: [id number] Received: 02/12/24-1321 Status: SABAS Knowles Num: [id number] Spec Type: Surgical Subm Dr: Raffaele Byrne MD FACS Tissues: A Colon Biopsy (RANDOM SIGMOID BX) Procedures: HE/2, Gross/Micro L4 ---- Patient: Memo Trinh [id number] (Continued) ---- Signed (signature on file) Len Rod MD 02/13/24 1451 Normal [facility] Consent for Procedure/Surger yon 01-30-2024 Consent for Procedure/Surgery [id number]#1.0 0TIFF Normal [facility] Ambulatory Visit Summaryon 0 01-29-2024 Ambulatory Visit [...] you for choosing us for your care. [facility] Pre-Certification Formon Pre-Certification Form [id number] 0TIFF [facility] Physician Referralon 024 Physician Referral [id number]#1.0 0TIFF Normal [facility] MRI CSPINE WO CONon 02-22-20 MRI CSPINE WO CON EXAMINATION: MRI CSPINE [...] KEITH YORK Date: 2023-02-21 08:51 Normal [facility] MRI SHOULDER RT WO CONon MRI SHOULDER [...] by: KEITH YORK Date: 2023-02-21 08:32 Normal [facility] XR FOREIGN BODY EYEon 2022 XR FOREIGN BODY EYE EXAMINATION: XR FOREIGN BODY EYE HISTORY: Foreign body in eye COMPARISON: No relevant comparison available. FINDINGS: ORBITS: Negative for a metallic foreign body. OTHER: Negative. IMPRESSION: 1. No metallic foreign body within the orbits. Electronically authenticated by: KEITH YORK Date: 2023-02-21 06:54 Normal [facility] SARS-CoV-2 (COVID-19) RNA NA A+probe Ql (Resp)on 05-21-2022 SARS-CoV-2 (COVID-19) RNA LADAN+probe Ql (Unsp spec) Positive [facility] Other Vital Signs Date Time Vital Sign Value Performing Clinician Facility 01-29-2024 14:06-0400 Blood Pressure Location Raffaele MCFARLANEActiviomics [facility] [place] 01-29-2024 14:06-0400 Diastolic blood pressure 74 mm[Hg] Raffaele MCFARLANEL [facility] [place] 01-29-2024 14:06-0400 Heart rate 58 /min Raffaele MCFARLANEL [facility] [place] 01-29-2024 14:06-0400 Respiratory rate 16 /min Raffaele DENYSL [facility] [place] 01-29-2024 14:06-0400 Systolic blood pressure 114 mm[Hg] Raffaele MCFARLANEFredy [facility] [place] 09-12-2023 10:00-0500 Body height 190.5 cm Elba León Other [facility] Other 09-12-2023 10:00-0500 Body mass index (BMI) [Ratio] 28.69 kg/m2 Elba León Other [facility] Other 09-12-2023 10:00-0500 Body temperature 98 [degF] Elba León Other [facility] Other 09-12-2023 10:00-0500 Body weight 104.15 kg Elba León Other [facility] Other 09-12-2023 10:00-0500 Diastolic blood pressure 73 mm[Hg] Elba León Other [facility] Other 09-12-2023 10:00-0500 Respiratory rate 18 /min Elba León Other [facility] Other 09-12-2023 10:00-0500 SaO2% (BldA) [Mass fraction] 96 % Elba León Other [facility] Other 09-12-2023 10:00-0500 Systolic blood pressure 129 mm[Hg] Elba León Other [facility] Other 05-21-2022 10:35-0400 Body height 190.5 cm Elba León Other [facility] Other 05-21-2022 10:35-0400 Body mass index (BMI) [Ratio] 27.25 kg/m2 Elba León Other [facility] Other 05-21-2022 10:35-0400 Body temperature 98.3 [degF] Elba León Other [facility] Other 05-21-2022 10:35-0400 Body weight 98.88 kg Elba León Other [facility] Other 05-21-2022 10:35-0400 Respiratory rate 18 /min Elba León Other [facility] Other 05-21-2022 10:35-0400 SaO2% (BldA) [Mass fraction] 97 % Elba León Other [facility] Other Encounters Encounter Date Encounter Type Care Provider Facility Start: 07-01-2025 End: 07-01-2025 ambulatory Dex Simmons APRN Work Phone: [facility] Work Phone: Start: 07-01-2025 End: 07-01-2025 Patient encounter procedure Tyesha Skinner MD -[facility] Work Phone: Start: 05-10-2025 End: 05-10-2025 ambulatory Dex Simmons APRN Work Phone: [facility] Work Phone: Start: 05-10-2025 End: 05-10-2025 Patient encounter procedure Tyesha Skinner MD -[facility] Work Phone: Start: 12-27-2024 End: 12-27-2024 ambulatory CARLYLE HAHN Not Available Start: 05-26-2024 End: 05-26-2024 ambulatory Soco Ferreira JOSELITO Facility:[facility] Start: 02-24-2024 End: 02-24-2024 ambulatory Raffaele R NILL Facility:[facility] Start: 02-24-2024 End: 02-24-2024 Patient encounter procedure Raffaele R NILL [facility] [place] Start: 02-11-2024 End: 02-11-2024 ambulatory Raffaele R Nill Facility:[facility] Start: 02-11-2024 End: 02-11-2024 ambulatory MD Raffaele Byrne Work Phone: [facility] Work Phone: Start: 02-11-2024 End: 02-11-2024 Departed Referred MD Raffaele Byrne Work Phone: [facility] [place] [facility] Start: 02-11-2024 End: 02-11-2024 ambulatory Raffaele R NILL Facility:CD:[id number] Start: 01-29-2024 End: 01-29-2024 ambulatory Raffaele R NILL Facility:[facility] Start: 01-29-2024 End: 01-29-2024 Patient encounter procedure Raffaele R NILL [facility] [place] Start: 01-26-2024 ambulatory Raffaele NILL Facility:[facility] Start: 01-06-2024 ambulatory Raffaele NILL Facility:[facility] [place] Start: 09-12-2023 End: 09-12-2023 ambulatory Elba León Other [facility] Other Start: 09-12-2023 Office outpatient vi sit 25 minutes Elba León [facility] Start: 02-21-2023 End: 02-22-2023 ambulatory DEX SIMMONS Facility:[facility] Start: 05-21-2022 End: 05-21-2022 ambulatory Elba Lóen Other [facility] Other Start: 05-21-2022 Office outpatient ne w 30 minutes Elba León [facility] [address] Procedures Date Procedure Procedure Detail Performing Clinician Start: 02-11-2024 Colonoscopy Raffaele MUNIZ LL Excision of cyst Raffaele MCFARLANE L Comment on above: scalp x 2 Tonsillectomy Raffaele BYRNE Immunizations Immunization Date Immunization Notes Care Provider Fa cility 12-02-2011 tetanus toxoid, redu glynn diphtheria toxoid, and acellular pertussis vaccine, adsorbed Raffaele BYRNE [facility] Payers Date Payer Category Payer Self-pay 2024 Unknown [id number] 1990 Unknown [id number] [id number] [id number] 1990 Unknown [id number] [id number] 1990 Unknown [id number] [id number] [id number] 1988 Unknown [id number] [id number] [id number] 1988 Unknown [id number] [id number] [id number] 1961 Private Health Insurance [id number] Social History Date Type Detail Facility Sex Assigned At [facility] Start: 01-29-2024 Tobacco smoking status Ex-smoker (fi nding) [facility] Tobacco smoking status Former sm okeless tobacco user, quit more than 30 days ago [facility] Start: 1990 Sex Assigned At Male F [facility] Tobacco smoking stat NHIS Unknown if ever smoked [facility] Work Phone: Sex Male (finding) [facility] Functional Status Date Assessment Result Facility 01-29-2024 Functional Status N/A [facility] [place] Clinical Notes 05-21-2022 to 05-10-2025 Note Date & Type Note Facility 05-10-2025 Chief complaint+R juan carlos for visit Narrative [facility] May 102024 3:22pm 4-7 WEEKS July 01, 2025 7:58am Reason for Visit Admit Date Bilateral carpal tunnel syndrome May 102024 3:22pm Bilateral carpal tunnel syndrome Septemb er 2024 7:58am [facility] Work Phone: 1(909) 532-773307-29-2025 Evaluation note* Diagnosis Onset Date Resolution Status Admit Date Bilateral carpal tunnel syndrome acute May 10, 2025 3:22pm Bilateral carpal tunnel syndrome acute July 01, 2025 7:58am [facility] Work Phone: 1(771) 520-872004-18-2024 NoteChief Complaint consultation for rectal pain, bleeding and loose stools HPI Staff 34 year old male presents on consultation from [place] for rectal pain and bleeding. Reports 3 [...] external rectal pain but denies noting external bulge.He has been apply external cream to anus [...] swallowing difficulties, no hearing loss, no ear infection(s),no nose bleeds. Cardiovascular: normal blood pressure, no [...] stress disorder Chronic recurrent (more content not included)...[facility] Comment on above:Result Comment: Electronically Signed By: JAYY SANTOS, Raffaele Sequeira\Date and Time Signed: 01/29/24 14:54 [id number] Evaluation note* Encounter Date Diagnosis Assessment Notes Treatment Notes Treatment Clinical Notes Sep, Contact with and (suspected) exposure [...] treatment plan. Patient left in stable condition [facility] Other 08-09-2022 Evaluation note* Encounter Date Diagnosis Assessment Notes Treatment Notes Treatment Clinical Notes May, Contact with and (suspected) exposure [...] treatment plan. Patient left in stable condition [facility] Other Chief complaint+Reason for visit Narrative* Chief Complaint Admit Date [facility] May 102024 3:22pm Reason for Visit Admit Date Bilateral carpal tunnel syndrome May 102024 3:22pm [facility] Work Phone: Evaluation + Plan note No data available for this section [facility] [place] Evaluation noteNo assessment information available [facility] Work Phone: Evaluation note* Diagnosis Onset Date Resolution Status Admit Date Bilateral carpal tunnel syndrome acu te May 10, 2025 3:22pm [facility] Work Phone: History general Narrative - Reported* Type Description Date Medical History anxiety [facility] Other Hospital Discharge instructions No data available for this section [facility] [place] Progress note No data available for this section [facility] [place] Reason for referral (narrative)No reason for referral information [facility] Work Phone: Summary Purpose Family History No Family History Records Found No data available for this section No Family History Records Found No data available for this section No Family History Records FoundNo Family History Records Found Advance Directives Advance Directive Response Recorded Date/ Time Advance Directives No January 27 025 12:06pm Additional Source Comments REASON FOR VISIT (unrecogniz ed section and content) POSITIVE HOME COVID TEST,HEA DACHE//COUGH (unrecognized sect ion and content) No Status Records FoundNo Status Records FoundNo Status Records FoundNo Status Records Found INFORMATION SOURCE (unrecogn ized section and content) DATE CREATED AUTHOR 02/22/2023 [facility] DATE CREATED AUTHOR AUTHOR'S ORGANIZ ATION 02/14/2024 [facility] DATE CREATED AUTHOR AUTHOR'S ORGANIZ ATION 05/28/2024 [facility] DATE CREATED AUTHOR AUTHOR'S ORGANIZ ATION 12/29/2024 [facility] EPIC Care Teams (unrecognized sec tion and content) Team Status: Active Member Role Status Dates Dex Simmons APRN SALES AND LEASING CONSULTANT-C Primary Care Provider Activ e Team Status: Inactive Member Role Status Dates Dex Simmons APRN SALES AND LEASING CONSULTANT-C Primary Care Provider Activ e Start: May 10, 2025 End: May 10, 2025 Tyesha Skinner MD Attending Provider Active Start: May 10, 2025 End: May 10, 2025 Team Status: Inactive Member Role Status Dates [...] BE BASED ON THE PRIMARY CLINICAL RECORDS. [facility] [employer] [facility]. provides no warranty or guarantee of the accuracy or completeness of information in this document.
--- NOTE | 2025-07-08 07:04 | MR_ITS ---
The [address] [address] Patient Name: MEMO MIRELES MRN: [id number] date: 1990 Sex: M Assigned Patient Location: MRI Current Patient Location: MRI Accession/Order Number: [id number] Exam Date: 07/08/2025 07:10 Report Date: 07/08/2025 09:09 At the request of: DEX SIMMONS Procedure: MR shoulder LT wo con MR LEFT SHOULDER CLINICAL INFORMATION: Left shoulder pain for 3 weeks with numbness and tingling in left arm. COMPARISON: None. PROCEDURE: Axial, oblique coronal, and oblique sagittal long TR images of the shoulder were obtained. FINDINGS: ROTATOR CUFF AND ASSOCIATED STRUCTURES Biceps Tendon: The biceps tendon is normally situated within the bicipital groove. No complete or partial biceps tendon tear is present. A small amount of fluid is noted along the tendon sheath suggesting tenosynovitis Rotator cuff: There is no complete or bursal/articular sided partial rotator cuff tear. The subscapularis constituent of the rotator cuff is intact. Musculature: There is no muscular tear, contusion, or atrophy. There is mild nonspecific edema in the supraspinatus musculature. Bursa: Fluid is noted in the subacromial bursa. OSSEOUS STRUCTURES Acromioclavicular joint: There are mild degenerative changes of the acromioclavicular joint. A type 2 acromion configuration is noted. There is no anterior or lateral acromial downsloping. Bones: No Hill-Sachs, reverse Hill-Sachs, or bony Bankart lesions are seen. There are no fractures or regions of abnormal bone marrow signal intensity. GLENOHUMERAL JOINT Joint: There is no glenohumeral joint effusion. Cartilage: No focal hyaline cartilage defects are noted. Labrum: The labrum is not optimally evaluated. Other support structures: No capsular or ligamentous abnormality is seen. MR/MR shoulder LT wo con IMPRESSION: 1. A small amount of fluid is noted along the long head biceps tendon sheath suggesting tenosynovitis. 2. Fluid is noted in the subacromial bursa possibly representing bursitis. 3. There is mild nonspecific edema in the supraspinatus musculature. Impression dictated by: Kt Sosa M.D. 07/08/2025 9:09 AM Dictation Location: [place] [address] Electronically authenticated by: [id number] Y Date: 07/08/2025 09:09
== END 2025-07-08 06:54 | disposition home or self-care (01) ==
LOC: MRI 06:54
DX: M25.512 Pain in left shoulder (principal)
CPT/HCPCS: 73221